=== PATIENT | male | born 1960 | race Caucasian/White ===

== ENCOUNTER → 2016-09-24 | Outpatient (CLI) | payer OTHER ==
[~2016-09-24] MED LIST: ELIQUIS5 MG PO; KEFLEX500 MG PO; LORTAB 5/500 TA1 TA1 PO
--- NOTE | ~2016-09-24 | CR173 ---
[facility] A Service of [facility] RADIOLOGY TEXT RESULTS PATIENT: LUIS BALLARD LOCATION: [facility] : 56 UNIT #: [id number] AGE: [address]: Bri Umana MD SEX: M ORDER DR: [id number] [facility] [address] [place], [place] [address] [id number] O MR#: [id number] Acc #: [id number] NAME: LUIS BALLARD : 1960 SEX: M STUDY DATE/TIME: 09/24/2016 11:17 UNIT: [facility] ROOM: STUDY DESCRIPTION: CR Knee 3 Views Rt Attending Physician: Bri Umana M.D. Referring Physician: Bri Umana M.D. Ordering Physician: Bri Umana M.D. Primary Care Physician: Rupali Shelton M.D. MEDICAL IMAGING REPORT This report is preliminary unless electronic signature is present EXAM Right knee, 3 views, 09/24/2016. HISTORY Osteoarthritis, right knee. Right knee pain for 1 years. FINDINGS 3 views of the right knee demonstrate no fracture. There is degenerative change with narrowing of the medial compartment of the knee. The bones are normally mineralized. There is a small joint effusion. IMPRESSION 1. Mild degenerative change involving the right knee. No evidence of fracture. 2. Small knee joint effusion. Dictated by... Peyman Schumacher M.D. THIS IS AN ELECTRONICALLY VERIFIED REPORT Peyman Schumacher M.D. at 09/25/2016 7:46 AM [place] TD: 09/24/2016 13:53 JOB #: [id number] MEDICAL IMAGING REPORT Page 1 of 1 COPY
== END | disposition home or self-care (01) ==
LOC: CRAD 10:41
DX: M17.11 Unilateral primary osteoarthritis, right knee (principal); M25.461 Effusion, right knee
CPT/HCPCS: 73562

== ENCOUNTER → 2016-11-12 | Outpatient (CLI) | payer OTHER ==
--- NOTE | ~2016-11-12 | CR63 ---
[facility] A Service of [facility] RADIOLOGY TEXT RESULTS PATIENT: LUIS BALLARD LOCATION: [facility] : 56 UNIT #: [id number] AGE: [address]: Bri Umana MD SEX: M ORDER DR: [id number] [facility] [address] [place], [place] [address] [id number] O MR#: [id number] Acc #: [id number] NAME: LUIS BALLARD : 1960 SEX: M STUDY DATE/TIME: 11/12/2016 14:17 UNIT: [facility] ROOM: STUDY DESCRIPTION: CR Chest 2 View Attending Physician: Bri Umana M.D. Referring Physician: Bri Umana M.D. Ordering Physician: Bri Umana M.D. Primary Care Physician: Rupali Shelton M.D. MEDICAL IMAGING REPORT This report is preliminary unless electronic signature is present EXAM Two-view chest, 11/12/2016 HISTORY A 56-year-old male for preoperative respiratory clearance prior to right knee surgery. Shortness of air with activity. COMPARISON STUDIES Chest 09/21/2009 FINDINGS Two views of the chest demonstrate clear lungs. No pleural effusion or pneumothorax. Heart size and mediastinum within normal limits. Pulmonary vasculature unremarkable. Calcified granulomas in the right lung. Pulmonary hyperexpansion suggests underlying emphysema. IMPRESSION No acute cardiopulmonary findings. Pulmonary hyperexpansion suggests underlying emphysema. Dictated by... Ld Cervantes M.D. THIS IS AN ELECTRONICALLY VERIFIED REPORT Ld Cervantes M.D. at 11/13/2016 9:06 AM TAMMY/wali TD: 11/12/2016 20:57 JOB #: [id number] [facility] A Service [facility] RADIOLOGY TEXT RESULTS PATIENT: LUIS BALLARD LOCATION: [facility] : 56 UNIT #: [id number] AGE: [address]: Bri Umana MD SEX: M ORDER DR: MEDICAL IMAGING REPORT Page 1 of 1 COPY
--- NOTE | ~2016-11-12 | EKG ---
PATIENT: LUIS BALLARD UNIT #: [id number] Ventricular Rate: 68 BPM Atrial Rate: 68 BPM P-R Interval: 144 ms QRS Duration: 90 ms Q-T Interval: 388 ms QTC Calculation(Bezet): 412 ms P Delano: 53 degrees Calculated R Delano: 60 degrees Calculated T Delano: 34 degrees Diagnosis Line: Normal sinus rhythm Diagnosis Line: Normal ECG Diagnosis Line: When compared with ECG of 21-SEP-2009 16:05, Diagnosis Line: QT has lengthened Diagnosis Line: Confirmed by YUE PEDERSEN MD ([id number]) on Diagnosis Line: 11/14/2016 8:45:17 AM INTERPRETING MD: SLAVA SALAZAR
[2016-11-12 14:13] LABS: HEMATOCRIT 40.3 % (38.0-50.0); HEMOGLOBIN 12.8 gm/dL (13.0-16.0); MEAN CELL VOLUME 84.5 FL (83-96); MEAN CORPUSCULAR HEMOGLOBIN 26.7 PG (28-34); MEAN CORPUSCULAR HGB CONC 31.6 g/dL (30-36); MEAN PLATELET VOLUME 8.8 FL (6.5-11.5); RED BLOOD COUNT 4.78 X10e (3.90-5.60); RED CELL DISTRIBUTION WIDTH 17.5 % (11.0-15.5); WHITE BLOOD COUNT 9.2 X10e3 (4.0-10.5)
[2016-11-12 14:24] LABS: URINE APPEARANCE TURBID; URINE BILIRUBIN NEG (NEG); URINE BLOOD NEG (NEG); URINE COLOR YELLOW; URINE GLUCOSE NEG (NEG); URINE KETONE NEG (NEG); URINE LEUKOCYTE ESTERASE NEG (NEG); URINE NITRATE NEG (NEG); URINE PROTEIN NEG (NEG); URINE SPECIFIC GRAVITY 1.016 (1.003-1.035); URINE UROBILINOGEN 0.2 MG/DL (NEG)
[2016-11-12 14:43] LABS: CULTURE INDICATED? NO
[2016-11-12 14:59] LABS: BUN/CREATININE RATIO 12.22; CALCIUM SERUM 9.7 mg/dL (8.4-10.2); CREATININE SERUM 0.9 mg/dL (0.6-1.4); GLOM FILT RATE Estimated 93.8 mL/min (>60); POTASSIUM 4.1 mmol/L (3.5-5.1); PROTEIN TOTAL SERUM 7.8 g/dL (6.0-8.3)
== END | disposition home or self-care (01) ==
LOC: CAMB 12:48 → EDSTATUS 14:00 → CAMB 14:00
PROVIDERS: Orthopaedic Surgery
DX: Z01.818 Encounter for other preprocedural examination (principal); S83.241A Other tear of medial meniscus, current injury, right knee, initial encounter; J98.4 Other disorders of lung
CPT/HCPCS: 36415; 71020; 80053; 81003; 85027; 93005

== ENCOUNTER → 2016-11-16 | Day surgery (SDC) | payer OTHER ==
--- NOTE | ~2016-11-16 | OR ---
Unit #: [id number] #: [id number] Patient: LUIS BALLARD [id number] [address] [address] [id number] O MR#: [id number] NAME: LUIS BALLARD ROOM: Date of Procedure: 11/16/2016 Admission Date: 11/16/2016 Surgeon: Bri Umana M.D. : 1960 Attending Physician: Bri Umana M.D. Primary Care Physician: Rupali Shelton M.D. OPERATIVE REPORT PREOPERATIVE DIAGNOSES Torn meniscus and degenerative joint disease. POSTOPERATIVE DIAGNOSES AND FINDINGS 1. 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 2. Grade 3 to 4 chondromalacia medial compartment. 3. Degenerative tear, body and posterior third medial meniscus. PROCEDURES PERFORMED 1. Arthroscopy, partial medial meniscectomy, and chondroplasty of the right knee. 2. Injection of Depo-Medrol, right knee. HISTORY AND FINDINGS The patient is a 56-year-old, who has been having pain in his right knee, swelling, episodes of knee catching, giving out. He had been treated conservatively and continued to have persistent symptoms. He had MRI, which was suggestive of meniscus pathology and degenerative arthritis. Treatment options of operative versus nonoperative treatment and operative options of arthroscopy versus joint replacement was discussed. The patient opted for arthroscopy. Risks of anesthesia and complications like infection, neurovascular injury, stiffness, residual symptoms, need for further surgery, postoperative complications like DVT and pneumonia had been explained. He voices understanding and wishes to proceed. DESCRIPTION OF PROCEDURE After induction of general anesthesia, the patient's right knee was examined to varus and valgus stress and was found to be stable in extension and 30 degrees of flexion. The Chaim and the pivot shift tests were negative. Then, the right knee was prepped and draped in the usual sterile manner. Time-out was called. Operative site was confirmed. After infiltrating the knee joint with 1% Xylocaine with epi through a parapatellar tendon approach, arthroscopy was performed. The suprapatellar pouch in the medial and lateral gutter showed some degenerative synovium and the patellar undersurface revealed grade 2 chondromalacic changes involving the medial facet. Trochlear revealed grade 3 chondromalacic changes with unstable chondral margins. Medial compartment was checked revealed grade 3 chondromalacic changes involving the femoral condyle and grade 4 changes involving the tibial condyle. Medial meniscus revealed a degenerative tear involving the body and posterior third. Using a shaver and radiofrequency wand, a partial medial Unit #: [id number] #: [id number] Patient: LUIS BALLARD meniscectomy and chondroplasty were performed. The intercondylar notch was checked. ACL and PCL were found to be intact. Lateral compartment was checked. Lateral femoral and tibial condylar surface were found to be normal and the lateral meniscus was intact to probing. Then, attention was turned towards the trochlea of the femur and using the radiofrequency wand, the chondral margins were stabilized. Knee joint was thoroughly irrigated. All loose chondral and meniscal fragments were irrigated and 80 mg of Depo-Medrol and 20 mL of 0.25% Marcaine with epi was instilled into the knee joint. Wound was closed with 4-0 nylon. Sterile compression dressing was applied. Blood loss approximately 15 mL. The patient received preoperative antibiotics, tolerated the procedure well, and was transferred to the recovery room in satisfactory condition. POSTOPERATIVE INSTRUCTIONS 1. Ice packs to the right knee and partial weightbearing ambulation with crutches. 2. [place] 7.5 mg p.o. q.6 hours p.r.n., and he will start resume his Eliquis 5 mg b.i.d. 3. He was given a followup appointment. Return to my office in 1 week. If any problems, to contact me. Dictated by... Heide Recinos/jackie TD: 11/17/2016 02:20 JOB #: [id number] OPERATIVE REPORT Page 1 of 1 X Bri Umana MD PROCEDURE OPERATIVE NOTE
== END | disposition home or self-care (01) ==
LOC: CSUR 12:12
DX: M23.221 Derangement of posterior horn of medial meniscus due to old tear or injury, right knee (principal); M17.11 Unilateral primary osteoarthritis, right knee; M94.261 Chondromalacia, right knee; I25.10 Atherosclerotic heart disease of native coronary artery without angina pectoris; I48.0 Paroxysmal atrial fibrillation; K21.9 Gastro-esophageal reflux disease without esophagitis; G89.29 Other chronic pain; M54.9 Dorsalgia, unspecified; Z86.73 Personal history of transient ischemic attack (TIA), and cerebral infarction without residual deficits; Z87.01 Personal history of pneumonia (recurrent); Z80.3 Family history of malignant neoplasm of breast; Z82.49 Family history of ischemic heart disease and other diseases of the circulatory system; Z88.8 Allergy status to other drugs, medicaments and biological substances; Z79.01 Long term (current) use of anticoagulants; Z79.82 Long term (current) use of aspirin; Z79.899 Other long term (current) drug therapy; Z95.5 Presence of coronary angioplasty implant and graft; Z98.890 Other specified postprocedural states
CPT/HCPCS: J0171; J0690; J1030; J1650; J2250; J2405; J3010